=== PATIENT | male | born 1950 | race Caucasian/White ===

== ENCOUNTER 2018-01-25 06:38 | Inpatient (IN) ==
[2018-01-24 08:24] LABS: Basophils # 0.1 10*3/uL (0.0-0.2); Eosinophils # 0.2 10*3/uL (0.0-0.87); Eosinophils % 2.4 % (0.00-10.9); Hematocrit 44.5 VOL% (42.0-52.0); Hemoglobin 14.4 GM/DL (14.0-18.0); Immature Granulocytes % 0.7 %; Immature Granulocytes Absolute 0.05 #; Lymphocytes # 2.3 10*3/uL (1.4-4.0); Lymphocytes % 32.2 % (21.2-54.2); Mean Corpuscular HGB Conc 32.4 GM/DL (32-36); Mean Corpuscular Hemoglobin 31 PG (27-34); Mean Corpuscular Volume 95.5 FL (87-102); Mean Platelet Volume 10.2 FL (9.6-12.0); Monocytes # 0.6 10*3/uL (0.11-0.8); Monocytes % 7.7 % (1.7-12.7); Neutrophils # 4.1 10*3/uL (1.4-7.4); Platelet Count 212 T/CUMM (130-400); Red Blood Count 4.66 MC/CUMM (3.8-5.5); Red Cell Distribution Width 14.6 % (9.3-17.3); White Blood Count 7.2 T/CUMM (4-12)
[2018-01-24 08:43] LABS: Albumin 4.2 G/DL (3.4-5.0); Bilirubin,Total 0.4 MG/DL (0.2-1.0); Osmolality,Calculated 280.7 MOS/KG (273-304); Potassium 4.2 MMOL/L (3.5-5.1); Total Protein 7.7 G/DL (6.4-8.3)
[~2018-01-25 06:38] MED LIST: HEPARIN/NACL 0.9% 2 UNITS/ML 500 ML IV ONE; LACTATED RINGERS 1,000 ML IV SCH; LIDOCAINE 1% 20 ML VIAL ONE; LIDOCAINE 2% TOP JELLY 20 ML VIAL INTRAURETH ONE; NITROGLYCERIN DRIP 50 MG/250 ML BOTTLE IV ONE; PANTOPRAZOLE 40 MG TABLET PO ONE; PHENYLEPHRINE DRIP 20 MG/250 ML PREMIX IV ONE; THROMBIN TOPICAL (RECOMBINANT) 5,000 UNIT VIAL TOP ONE; TISSUE ADHESIVE 1 EACH APPLICATOR TOP ONE; VANCOMYCIN 500 MG VIAL ONE; ceFAZolin 1,000 MG VIAL ONE
[2018-01-25] MEDS ORDERED: DIAZEPAM 5 MG TABLET PO ONE (07:01)
[2018-01-25] MEDS ORDERED: DIAZEPAM 5 MG TABLET ONE (07:01)
[2018-01-25] MEDS ORDERED: PANTOPRAZOLE 40 MG TABLET PO ONE (07:01)
[2018-01-25] MEDS ORDERED: MIDAZOLAM 2 MG/2 ML VIAL ONE (07:10)
[2018-01-25] MEDS ORDERED: HEPARIN/NACL 0.9% 2 UNITS/ML 3,000 ML IV ONE (07:11)
[2018-01-25] MEDS ORDERED: ceFAZolin 1,000 MG in SYRINGE 1 EACH IV ONE (09:32)
[2018-01-25] MEDS ORDERED: FUROSEMIDE 20 MG TABLET PO PRN (10:19)
[2018-01-25] MEDS ORDERED: DEXTROSE 50% 25 GM/50 ML VIAL IV PRN (10:21)
[2018-01-25] MEDS ORDERED: GLUCAGON 1 MG VIAL IM PRN (10:21)
[2018-01-25] MEDS ORDERED: NEOSTIGMINE 10 MG/10 ML VIAL ONE (10:40)
[2018-01-25] MEDS ORDERED: GLYCOPYRROLATE 0.4 MG/2 ML VIAL ONE (10:40)
[2018-01-25] MEDS ORDERED: ETOMIDATE 40 MG/20 ML VIAL IV ONE (10:40)
[2018-01-25] MEDS ORDERED: SODIUM CHLORIDE 0.9% 1,000 ML IV ONE (10:40)
[2018-01-25] MEDS ORDERED: ROCURONIUM 100 MG/10 ML VIAL IV ONE (10:40)
[2018-01-25] MEDS ORDERED: HEPARIN 10,000 UNIT/10 ML VIAL ONE (10:40)
[2018-01-25] MEDS ORDERED: DESFLURANE 1 UNIT/15 MINUTE INH ONE (10:40)
[2018-01-25] MEDS ORDERED: fentaNYL 100 MCG/2 ML VIAL ONE (10:40)
[2018-01-25] MEDS: LACTATED RINGERS 1,000 ML IV SCH ×3 (11:45→22:16)
[2018-01-25] MEDS: INSULIN REGULAR 100 UNIT/ML SUBCUT SCH ×3 (12:10→20:53)
[2018-01-25 12:27] LABS: Hematocrit 39.6 VOL% (42.0-52.0); Hemoglobin 12.8 GM/DL (14.0-18.0)
[2018-01-25] MEDS: oxyCODONE/ACETAMINOPHEN 5-325 MG TABLET PO PRN ×3 (12:36→22:16)
[2018-01-25 12:43] LABS: Calcium 8.2 MG/DL (8.5-10.1); Osmolality,Calculated 285.3 MOS/KG (273-304); Potassium 4.5 MMOL/L (3.5-5.1)
[2018-01-25] MEDS: HYDROmorphone 2 MG/1 ML VIAL IV PRN ×2 (14:23→23:45)
[2018-01-25] MEDS ORDERED: amLODIPine 5 MG TABLET PO ONE (21:00)
[2018-01-25] MEDS ORDERED: cloNIDine 0.1 MG TABLET PO SCH ×2 (21:00)
[2018-01-26] MEDS: oxyCODONE/ACETAMINOPHEN 5-325 MG TABLET PO PRN (04:22)
[2018-01-26 05:33] LABS: Hematocrit 35.2 VOL% (42.0-52.0); Hemoglobin 11.8 GM/DL (14.0-18.0)
[2018-01-26 06:01] LABS: Calcium 8.2 MG/DL (8.5-10.1); Osmolality,Calculated 284.3 MOS/KG (273-304); Potassium 3.8 MMOL/L (3.5-5.1)
[2018-01-26] MEDS: LACTATED RINGERS 1,000 ML IV SCH (07:26)
[2018-01-26 08:01] VITALS: BP 128/72
[2018-01-26] MEDS: INSULIN REGULAR 100 UNIT/ML SUBCUT SCH (08:03)
[2018-01-26] MEDS ORDERED: metFORMIN 500 MG TABLET PO SCH (09:00)
[2018-01-26] MEDS ORDERED: OMEGA 3 ACID ETHYL ESTERS 1 GM CAPSULE PO SCH (09:00)
[2018-01-26] MEDS ORDERED: hydroCHLOROthiazide 25 MG TABLET PO SCH (09:00)
[2018-01-26] MEDS ORDERED: CLOPIDOGREL 75 MG TABLET PO SCH (09:00)
[2018-01-26] MEDS ORDERED: amLODIPine 5 MG TABLET PO SCH (09:00)
[2018-01-26] MEDS ORDERED: LOSARTAN 50 MG TABLET PO SCH (09:00)
[2018-01-26] MEDS ORDERED: ESCITALOPRAM 10 MG TABLET PO SCH (09:00)
[2018-01-26] MEDS ORDERED: amLODIPine 10 MG TABLET PO SCH (09:00)
[2018-01-26] MEDS ORDERED: AMIODARONE 200 MG TABLET PO SCH (09:00)
[2018-01-26] MEDS ORDERED: CHOLECALCIFEROL 1,000 UNIT TABLET PO SCH (09:00)
[2018-01-26] MEDS ORDERED: GLUCOSAMINE 500 MG TABLET PO SCH (09:00)
[2018-01-26] MEDS ORDERED: PANTOPRAZOLE 40 MG TABLET PO SCH (09:00)
[2018-01-26] MEDS ORDERED: ASPIRIN EC 81 MG TABLET PO SCH (09:00)
[2018-01-26] MEDS ORDERED: ROSUVASTATIN 20 MG TABLET PO SCH (09:00)
== END 2018-01-26 11:50 | disposition home or self-care (01) | DRG 269 ==
LOC: N.SDSINP 06:38 → N.3E 11:41
PROVIDERS: ADMIT Surgery; ATTEND Surgery
PROC: IRERAAA (2018-01-25 08:05)

== ENCOUNTER 2020-09-30 09:25 | Inpatient (IN) ==
[2020-09-30] MEDS ORDERED: GLUCAGON 1 MG VIAL IM PRN ×2 (09:28)
[2020-09-30] MEDS ORDERED: DEXTROSE 50% 25 GM/50 ML VIAL IV PRN ×2 (09:28)
[2020-09-30] MEDS ORDERED: PANTOPRAZOLE 40 MG TABLET PO ONE (10:24)
[2020-09-30] MEDS ORDERED: DIAZEPAM 5 MG TABLET PO ONE (10:24)
[2020-09-30] MEDS ORDERED: CLORAZEPATE 7.5 MG TABLET PO PRN (11:34)
[2020-09-30 11:52] LABS: ABG Base Excess 0.8 MMOL/L (-2.5-2.5); ABG HCO3 25.1 MMOL/L (20-26); ABG PCO2 40.1 MM HG (35-48); ABG TCO2 22.2 MMOL/L (23-27)
[2020-09-30 11:53] LABS: Basophils # 0.1 10*3/uL (0.0-0.2); Basophils % 0.9 % (0.0-0.8); Eosinophils # 0.2 10*3/uL (0.0-0.87); Eosinophils % 3.4 % (0.00-10.9); Hematocrit 40.6 VOL% (42.0-52.0); Hemoglobin 13.1 GM/DL (14.0-18.0); Immature Granulocytes % 0.7 %; Immature Granulocytes Absolute 0.04 #; Lymphocytes # 1.2 10*3/uL (1.4-4.0); Lymphocytes % 20.9 % (21.2-54.2); Mean Corpuscular HGB Conc 32.3 GM/DL (32-36); Mean Corpuscular Volume 96.7 FL (87-102); Mean Platelet Volume 9.1 FL (9.6-12.0); Monocytes % 10.5 % (1.7-12.7); Neutrophils % 63.6 % (38.7-73.9); Platelet Count 187 T/CUMM (130-400); Red Cell Distribution Width 15.6 % (9.3-17.3); White Blood Count 5.5 T/CUMM (4-12)
[2020-09-30 12:16] LABS: Albumin 4.2 G/DL (3.4-5.0); Bilirubin,Total 0.4 MG/DL (0.2-1.0); Calcium 9.6 MG/DL (8.5-10.1); Osmolality,Calculated 278.7 MOS/KG (273-304); Potassium 3.8 MMOL/L (3.5-5.1); Total Protein 7.3 G/DL (6.4-8.2)
[2020-09-30] MEDS: SODIUM CHLORIDE 0.9% 1,000 ML IV SCH (13:17)
[2020-09-30] MEDS: CHLORHEXIDINE 0.12% ORAL RINSE 60 ML BOTTLE SWISH/SPIT SCH ×2 (13:19→21:52)
[2020-09-30] MEDS: INSULIN REGULAR 100 UNIT/ML SUBCUT SCH ×3 (13:28→21:53)
[2020-09-30] MEDS: CHLORHEXIDINE 4% SOLN 118 ML BOTTLE TOP SCH ×2 (15:35→21:54)
[2020-09-30] MEDS ORDERED: QUEtiapine 25 MG TABLET PO SCH (21:00)
[2020-10-01] MEDS ORDERED: VANCOMYCIN 500 MG VIAL ONE (04:23)
[2020-10-01] MEDS ORDERED: VANCOMYCIN 1,000 MG VIAL ONE (04:23)
[2020-10-01] MEDS ORDERED: PAPAVERINE 60 MG/2 ML VIAL ONE (04:24)
[2020-10-01] MEDS ORDERED: SODIUM CHLORIDE 0.9% 250 ML IV ONE ×2 (05:34→13:50)
[2020-10-01] MEDS ORDERED: VECURONIUM 10 MG VIAL IV ONE (05:34)
[2020-10-01] MEDS ORDERED: HEPARIN/NACL 0.9% 2 UNITS/ML 1,000 UNIT/500 ML BAG IV ONE (05:34)
[2020-10-01] MEDS ORDERED: MIDAZOLAM 10 MG/2 ML VIAL ONE ×4 (05:34)
[2020-10-01] MEDS ORDERED: LIDOCAINE 2% 5 ML VIAL ONE ×2 (05:34→11:43)
[2020-10-01] MEDS ORDERED: SODIUM CHLORIDE 0.9% 1,000 ML IV ONE ×2 (05:34→12:20)
[2020-10-01] MEDS ORDERED: LACTATED RINGERS 1,000 ML IV ONE (05:34)
[2020-10-01] MEDS ORDERED: CALCIUM CHLORIDE 1,000 MG/10 ML VIAL IV ONE (05:34)
[2020-10-01] MEDS ORDERED: PHENYLEPHRINE DRIP 20 MG/250 ML PREMIX IV ONE ×3 (05:34→11:45)
[2020-10-01] MEDS ORDERED: SUFentanil 250 MCG/5 ML AMP ONE ×2 (05:34→08:12)
[2020-10-01] MEDS ORDERED: AMINOCAPROIC ACID 5,000 MG/20 ML VIAL ONE (05:34)
[2020-10-01] MEDS ORDERED: MINERAL OIL/PETROLATUM OPH OINT 3.5 GM TUBE ONE (05:37)
[2020-10-01] MEDS ORDERED: PANTOPRAZOLE 40 MG TABLET PO ONE (06:00)
[2020-10-01] MEDS ORDERED: DIAZEPAM 5 MG TABLET PO ONE (06:00)
[2020-10-01] MEDS ORDERED: ePHEDrine 50 MG/ML VIAL ONE (07:14)
[2020-10-01 07:45] LABS: ABG Base Excess 2.5 MMOL/L (-2.5-2.5); ABG HCO3 26.7 MMOL/L (20-26); ABG PCO2 39.1 MM HG (35-48); ABG PH 7.442 (7.35-7.45); ABG TCO2 23.4 MMOL/L (23-27); Glucose Heart Surgery 141 MG/DL (74-106); Hemoglobin Heart Surgery 12.4 G/DL (14.0-18.0); Ionized Calcium Arterial 1.15 MMOL/L (1.21-1.46); PCO2 Patient Temp Arterial 39.1 MMHG; PH Patient Temp Arterial 7.442; Patient Temperature 37 CELCIUS; Potassium Heart/CVR 3.6 MMOL/L (3.5-5.1); Sodium Heart/CVR 143 MMOL/L (135-145)
[2020-10-01] MEDS ORDERED: NITROPRUSSIDE 50 MG/2 ML VIAL ONE (07:56)
[2020-10-01] MEDS ORDERED: POTASSIUM CHLORIDE RIDER 100 ML IV ONE (07:56)
[2020-10-01] MEDS ORDERED: SODIUM BICARBONATE 50 MEQ/50 ML VIAL IV ONE ×2 (07:56→11:44)
[2020-10-01] MEDS ORDERED: CALCIUM CHLORIDE 1,000 MG/10 ML SYRINGE IV ONE (07:57)
[2020-10-01] MEDS ORDERED: PHENYLEPHRINE DRIP 40 MG/250 ML PREMIX IV ONE (07:57)
[2020-10-01 08:49] LABS: Bilirubin,Urine Negative (Negative); Blood, Urine Negative (Negative); Glucose,Urine (UA) Negative (Negative); Hyaline Casts,Urine 3 /LPF (0-3); Ketones,Urine Negative (Negative); Mucus,Urine Occasional /LPF (Occasional); Nitrite,Urine Negative (Negative); Protein,Urine Negative; Squamous Epithelial Cell,Urine Occasional /HPF (0-10); Urine Appearance CLEAR (Clear); Urine Color Yellow (Yellow); Urine Specific Gravity 1.018 (1.001-1.035); Urine Urobilinogen < 2.0 EU/DL (0.2-1.0); WBC,Urine <1 /HPF (0-6)
[2020-10-01] MEDS: CHLORHEXIDINE 4% SOLN 118 ML BOTTLE TOP SCH (08:55)
[2020-10-01] MEDS: CEFUROXIME INJ 1,500 MG in SODIUM CHLORIDE 0.9% 100 ML IV ONE ×2 (08:55→11:26)
[2020-10-01] MEDS: CHLORHEXIDINE 0.12% ORAL RINSE 60 ML BOTTLE SWISH/SPIT SCH ×2 (08:55→20:53)
[2020-10-01] MEDS: INSULIN REGULAR 100 UNIT/ML SUBCUT SCH ×2 (08:55→11:37)
[2020-10-01] MEDS ORDERED: SEVOFLURANE 1 UNIT/15 MINUTE INH ONE ×5 (09:29→11:46)
[2020-10-01] MEDS ORDERED: HEPARIN 10,000 UNIT/10 ML VIAL ONE ×3 (09:29→11:45)
[2020-10-01] MEDS: SODIUM CHLORIDE 0.9% 1,000 ML IV SCH (10:20)
[2020-10-01 10:41] LABS: Hematocrit Heart Surgery 39.4 PERCENT (42-52); Hemoglobin Heart Surgery 12.8 G/DL (14.0-18.0); PCO2 Patient Temp Venous 66.2 MM HG; PH Patient Temp Venous 7.182; VBG Base Excess -5.3 MEQ/L (0-4); VBG Oxygen Saturation 96.8 %; VBG PCO2 66.2 MMHG (41-51); VBG PH 7.182; VBG Total CO2 22.6 MMOL/L
[2020-10-01 10:54] LABS: Hematocrit Heart Surgery 26.5 PERCENT (42-52); Hemoglobin Heart Surgery 8.5 G/DL (14.0-18.0); PCO2 Patient Temp Venous 46.5 MM HG; PH Patient Temp Venous 7.428; PO2 Patient Temp Venous 42.3 MM HG; Potassium Heart/CVR 4.3 MMOL/L (3.5-5.1); VBG Base Excess 5.7 MEQ/L (0-4); VBG HCO3 29.2 MEQ/L (24-28); VBG Oxygen Saturation 75.8 %; VBG PCO2 46.5 MMHG (41-51); VBG PH 7.428; VBG PO2 42.3 MMHG (17-40); VBG Total CO2 28.6 MMOL/L
[2020-10-01 11:34] LABS: ABG Base Excess 1.2 MMOL/L (-2.5-2.5); ABG HCO3 25.5 MMOL/L (20-26); ABG Oxygen Saturation 96.9 % (95-100); ABG PCO2 41.9 MM HG (35-48); ABG PH 7.402 (7.35-7.45); ABG PO2 88.3 MM HG (80-95); ABG TCO2 23.9 MMOL/L (23-27)
[2020-10-01] MEDS ORDERED: ALBUMIN 25% 25 GM/100 ML VIAL IV ONE (11:43)
[2020-10-01] MEDS ORDERED: MAGNESIUM SULFATE 5 GM/10 ML VIAL IV ONE (11:43)
[2020-10-01] MEDS ORDERED: PROTAMINE SULFATE 250 MG/25 ML VIAL IV ONE (11:44)
[2020-10-01] MEDS ORDERED: PROTAMINE SULFATE 50 MG/5 ML VIAL IV ONE (11:44)
[2020-10-01] MEDS ORDERED: FUROSEMIDE 20 MG/2 ML VIAL ONE (11:44)
[2020-10-01] MEDS ORDERED: DEXTROSE 5% KCL 20 MEQ 20 MEQ/1,000 ML BAG IV ONE (11:44)
[2020-10-01] MEDS ORDERED: methylPREDNISolone SOD SUC 1,000 MG/8 ML VIAL ONE (11:44)
[2020-10-01] MEDS ORDERED: MANNITOL 100 GM/500 ML BAG IV ONE (11:44)
[2020-10-01] MEDS: PHENYLEPHRINE DRIP 40 MG/250 ML PREMIX IV PRN ×2 (12:20→21:00)
[2020-10-01] MEDS ORDERED: VECURONIUM 10 MG VIAL IV PRN ×2 (12:47)
[2020-10-01] MEDS ORDERED: MIDAZOLAM 2 MG/2 ML VIAL IV PRN (12:47)
[2020-10-01] MEDS ORDERED: CHLORHEXIDINE 4% SOLN 118 ML BOTTLE TOP PRN (12:47)
[2020-10-01] MEDS ORDERED: MORPHINE 10 MG/1 ML VIAL IV PRN (12:47)
[2020-10-01] MEDS ORDERED: MAGNESIUM SULF RIDER 4 GM/100 ML PREMIX IV PRN (12:47)
[2020-10-01] MEDS ORDERED: INSULIN REGULAR 100 UNIT/ML IV PRN (12:47)
[2020-10-01] MEDS ORDERED: ONDANSETRON 4 MG/2 ML VIAL IV PRN (12:47)
[2020-10-01] MEDS ORDERED: SODIUM CHLORIDE 0.45% 1,000 ML IV SCH ×2 (12:47)
[2020-10-01] MEDS ORDERED: DEXTROSE 50% 25 GM/50 ML VIAL IV PRN ×2 (12:47)
[2020-10-01] MEDS ORDERED: INSULIN REGULAR DRIP 100 ML IV SCH (12:47)
[2020-10-01] MEDS ORDERED: ACETAMINOPHEN 650 MG SUPP RECTAL PRN (12:47)
[2020-10-01] MEDS ORDERED: MAGNESIUM SULF RIDER 2 GM/50 ML PREMIX IV PRN (12:47)
[2020-10-01] MEDS ORDERED: MIDAZOLAM 10 MG/2 ML VIAL IV PRN (12:47)
[2020-10-01] MEDS ORDERED: INSULIN REGULAR 100 UNIT/ML IV ONE (12:47)
[2020-10-01] MEDS ORDERED: CALCIUM CHLORIDE 1,000 MG/10 ML SYRINGE IV PRN (12:47)
[2020-10-01] MEDS ORDERED: NITROPRUSSIDE 100 MG in DEXTROSE 5% 250 ML IV PRN (12:47)
[2020-10-01 12:52] LABS: ABG Base Excess 0.4 MMOL/L (-2.5-2.5); ABG HCO3 24.8 MMOL/L (20-26); ABG Oxygen Saturation 99.6 % (95-100); ABG PCO2 47.5 MM HG (35-48); ABG PH 7.352 (7.35-7.45); ABG TCO2 24.3 MMOL/L (23-27); Glucose Heart Surgery 259 MG/DL (74-106); Hematocrit Heart Surgery 29.1 PERCENT (42-52); Hemoglobin Heart Surgery 9.4 G/DL (14.0-18.0); Potassium Heart/CVR 3.5 MMOL/L (3.5-5.1)
[2020-10-01 12:55] LABS: Basophils % 0.5 % (0.0-0.8); Eosinophils # 0.1 10*3/uL (0.0-0.87); Eosinophils % 1.8 % (0.00-10.9); Hematocrit 27.8 VOL% (42.0-52.0); Immature Granulocytes % 0.4 %; Immature Granulocytes Absolute 0.02 #; Lymphocytes % 18.7 % (21.2-54.2); Mean Corpuscular HGB Conc 32.7 GM/DL (32-36); Mean Corpuscular Volume 95.9 FL (87-102); Mean Platelet Volume 9.3 FL (9.6-12.0); Neutrophils % 69.6 % (38.7-73.9); Platelet Count 137 T/CUMM (130-400); Red Cell Distribution Width 15.6 % (9.3-17.3); White Blood Count 5.6 T/CUMM (4-12)
[2020-10-01 12:58] LABS: Hemoglobin 9.1 GM/DL (14.0-18.0)
[2020-10-01] MEDS: ALBUMIN 5% 12.5 GM/250 ML VIAL IV PRN ×4 (13:00→20:20)
[2020-10-01 13:18] LABS: CKMB % 6.3 %
[2020-10-01 13:19] LABS: INR 1.3; PT Patient Result 14.1 SECS (9.8-11.9)
[2020-10-01 13:26] LABS: Albumin 3.2 G/DL (3.4-5.0); Bilirubin,Total 0.7 MG/DL (0.2-1.0); Calcium 7.6 MG/DL (8.5-10.1); Osmolality,Calculated 292.1 MOS/KG (273-304); Potassium 3.5 MMOL/L (3.5-5.1); Total Protein 5.1 G/DL (6.4-8.2)
[2020-10-01 13:27] LABS: Troponin I 4.32 NG/ML (0.00-0.045)
[2020-10-01] MEDS: POTASSIUM CHLORIDE RIDER 20 MEQ in PREMIX 1 EACH IV PRN ×2 (13:30→18:17)
[2020-10-01 14:34] LABS: ABG Base Excess -1.2 MMOL/L (-2.5-2.5); ABG HCO3 24.7 MMOL/L (20-26); ABG PCO2 46.7 MM HG (35-48); ABG PH 7.341 (7.35-7.45); ABG PO2 107.1 MM HG (80-95); ABG TCO2 26.1 MMOL/L (23-27); Glucose Heart Surgery 216 MG/DL (74-106); Hemoglobin Heart Surgery 10.2 G/DL (14.0-18.0); Potassium Heart/CVR 3.7 MMOL/L (3.5-5.1)
[2020-10-01] MEDS: POTASSIUM CHLORIDE RIDER 10 MEQ in PREMIX 1 EACH IV PRN ×2 (14:47→20:35)
[2020-10-01] MEDS: LACTATED RINGERS 250 ML IV PRN ×2 (16:09→16:50)
[2020-10-01 17:37] LABS: ABG Base Excess 0.2 MMOL/L (-2.5-2.5); ABG HCO3 24.6 MMOL/L (20-26); ABG Oxygen Saturation 98.4 % (95-100); ABG PCO2 55.2 MM HG (35-48); ABG PH 7.304 (7.35-7.45); ABG TCO2 25.3 MMOL/L (23-27); Glucose Heart Surgery 180 MG/DL (74-106); Hematocrit Heart Surgery 29.9 PERCENT (42-52); Hemoglobin Heart Surgery 9.7 G/DL (14.0-18.0); Potassium Heart/CVR 3.8 MMOL/L (3.5-5.1)
[2020-10-01 18:35] LABS: ABG Base Excess 0.1 MMOL/L (-2.5-2.5); ABG HCO3 24.5 MMOL/L (20-26); ABG Oxygen Saturation 99.2 % (95-100); ABG PCO2 42.4 MM HG (35-48); ABG PH 7.383 (7.35-7.45); ABG TCO2 22.8 MMOL/L (23-27); Glucose Heart Surgery 166 MG/DL (74-106); Hematocrit Heart Surgery 32.4 PERCENT (42-52); Hemoglobin Heart Surgery 10.5 G/DL (14.0-18.0); Potassium Heart/CVR 3.9 MMOL/L (3.5-5.1)
[2020-10-01] MEDS ORDERED: HALOPERIDOL 5 MG/ML AMP IV ONE (19:45)
[2020-10-01] MEDS: CEFUROXIME INJ 1,500 MG in SODIUM CHLORIDE 0.9% 100 ML IV SCH (19:54)
[2020-10-01 20:09] LABS: ABG Base Excess 0.2 MMOL/L (-2.5-2.5); ABG HCO3 24.6 MMOL/L (20-26); ABG Oxygen Saturation 99.1 % (95-100); ABG PCO2 38.2 MM HG (35-48); ABG PH 7.416 (7.35-7.45); ABG TCO2 22.2 MMOL/L (23-27); Glucose Heart Surgery 141 MG/DL (74-106); Hematocrit Heart Surgery 31.6 PERCENT (42-52); Hemoglobin Heart Surgery 10.2 G/DL (14.0-18.0); Potassium Heart/CVR 3.8 MMOL/L (3.5-5.1)
[2020-10-01 20:50] LABS: CKMB % 4.3 %
[2020-10-01 20:51] LABS: Troponin I 4.22 NG/ML (0.00-0.045)
[2020-10-01 22:11] LABS: ABG Base Excess -0.7 MMOL/L (-2.5-2.5); ABG HCO3 23.9 MMOL/L (20-26); ABG Oxygen Saturation 99.1 % (95-100); ABG PH 7.367 (7.35-7.45); ABG TCO2 22.7 MMOL/L (23-27); Glucose Heart Surgery 137 MG/DL (74-106); Hematocrit Heart Surgery 29.5 PERCENT (42-52); Hemoglobin Heart Surgery 9.5 G/DL (14.0-18.0)
[2020-10-01] MEDS: MORPHINE 4 MG/1 ML VIAL IV PRN (22:14)
[2020-10-01 23:38] LABS: ABG Base Excess -2.2 MMOL/L (-2.5-2.5); ABG HCO3 22.6 MMOL/L (20-26); ABG Oxygen Saturation 98.3 % (95-100); ABG PCO2 47.8 MM HG (35-48); ABG PH 7.314 (7.35-7.45); ABG TCO2 22.3 MMOL/L (23-27); Glucose Heart Surgery 149 MG/DL (74-106); Hematocrit Heart Surgery 31.3 PERCENT (42-52); Hemoglobin Heart Surgery 10.1 G/DL (14.0-18.0); Potassium Heart/CVR 3.8 MMOL/L (3.5-5.1)
[2020-10-02 00:28] LABS: ABG Base Excess -1.9 MMOL/L (-2.5-2.5); ABG HCO3 22.7 MMOL/L (20-26); ABG Oxygen Saturation 95.3 % (95-100); ABG PCO2 45.4 MM HG (35-48); ABG PH 7.333 (7.35-7.45); ABG PO2 79.5 MM HG (80-95); ABG TCO2 21.9 MMOL/L (23-27); Glucose Heart Surgery 155 MG/DL (74-106); Hematocrit Heart Surgery 33.7 PERCENT (42-52); Hemoglobin Heart Surgery 10.9 G/DL (14.0-18.0); Potassium Heart/CVR 3.9 MMOL/L (3.5-5.1)
[2020-10-02] MEDS: MORPHINE 4 MG/1 ML VIAL IV PRN ×3 (00:34→05:15)
[2020-10-02 03:12] LABS: ABG Base Excess -0.6 MMOL/L (-2.5-2.5); ABG HCO3 23.9 MMOL/L (20-26); ABG Oxygen Saturation 97.4 % (95-100); ABG PCO2 46.9 MM HG (35-48); ABG PH 7.343 (7.35-7.45); ABG PO2 94.1 MM HG (80-95); ABG TCO2 23.2 MMOL/L (23-27); Glucose Heart Surgery 156 MG/DL (74-106); Hematocrit Heart Surgery 31.8 PERCENT (42-52); Hemoglobin Heart Surgery 10.3 G/DL (14.0-18.0)
[2020-10-02 03:16] LABS: Basophils % 0.1 % (0.0-0.8); Hematocrit 30.4 VOL% (42.0-52.0); Immature Granulocytes % 0.3 %; Immature Granulocytes Absolute 0.03 #; Lymphocytes # 0.4 10*3/uL (1.4-4.0); Lymphocytes % 4.3 % (21.2-54.2); Mean Corpuscular HGB Conc 32.9 GM/DL (32-36); Mean Corpuscular Volume 90.5 FL (87-102); Mean Platelet Volume 9.4 FL (9.6-12.0); Monocytes % 6.5 % (1.7-12.7); Neutrophils % 88.8 % (38.7-73.9); Platelet Count 118 T/CUMM (130-400); Red Blood Count 3.36 MC/CUMM (3.8-5.5); Red Cell Distribution Width 18.8 % (9.3-17.3); White Blood Count 8.9 T/CUMM (4-12)
[2020-10-02 03:32] LABS: CKMB % 2.2 %
[2020-10-02 03:34] LABS: Troponin I 4.17 NG/ML (0.00-0.045)
[2020-10-02 03:40] LABS: Bilirubin,Direct 0.2 MG/DL (0.0-0.20); Bilirubin,Total 0.6 MG/DL (0.2-1.0); Calcium 7.4 MG/DL (8.5-10.1); Osmolality,Calculated 289.8 MOS/KG (273-304); Potassium 4.1 MMOL/L (3.5-5.1); Total Protein 5.8 G/DL (6.4-8.2)
[2020-10-02 03:47] LABS: Hypochromasia Slight
[2020-10-02] MEDS: KETOROLAC 30 MG/1 ML VIAL IV SCH ×3 (06:39→19:30)
[2020-10-02] MEDS: ASPIRIN EC 81 MG TABLET PO SCH (08:20)
[2020-10-02] MEDS: ESCITALOPRAM 10 MG TABLET PO SCH (08:20)
[2020-10-02] MEDS: FOLIC ACID 1 MG TABLET PO SCH (08:20)
[2020-10-02] MEDS: INSULIN REGULAR 100 UNIT/ML SUBCUT SCH ×4 (08:20→21:38)
[2020-10-02] MEDS: CEFUROXIME INJ 1,500 MG in SODIUM CHLORIDE 0.9% 100 ML IV SCH ×2 (08:20→21:38)
[2020-10-02] MEDS: CHLORHEXIDINE 0.12% ORAL RINSE 60 ML BOTTLE SWISH/SPIT SCH ×3 (08:20→21:39)
[2020-10-02] MEDS: PANTOPRAZOLE 40 MG TABLET PO SCH (08:21)
[2020-10-02] MEDS ORDERED: MAGNESIUM SULF RIDER 4 GM/100 ML PREMIX IV PRN (09:15)
[2020-10-02] MEDS ORDERED: SODIUM CHLOR 0.45% KCL 20 MEQ 20 MEQ/1,000 ML BAG IV SCH (09:15)
[2020-10-02] MEDS ORDERED: amLODIPine 5 MG TABLET PO SCH (09:15)
[2020-10-02] MEDS ORDERED: ONDANSETRON 4 MG/2 ML VIAL IV PRN (09:15)
[2020-10-02] MEDS ORDERED: GLUCAGON 1 MG VIAL IM PRN ×2 (09:15)
[2020-10-02] MEDS ORDERED: ALUMINUM/MAGNES/SIMETH MAX STR 30 ML UDCUP PO PRN (09:15)
[2020-10-02] MEDS ORDERED: MAGNESIUM HYDROXIDE SUSP 30 ML UDCUP PO PRN (09:15)
[2020-10-02] MEDS ORDERED: MAGNESIUM SULF RIDER 2 GM/50 ML PREMIX IV PRN (09:15)
[2020-10-02] MEDS ORDERED: DEXTROSE 50% 25 GM/50 ML VIAL IV PRN ×2 (09:15)
[2020-10-02] MEDS ORDERED: ZALEPLON 5 MG CAPSULE PO PRN (09:15)
[2020-10-02] MEDS: DOCUSATE SODIUM 100 MG CAPSULE PO SCH (09:53)
[2020-10-02] MEDS: FERROUS SULFATE 325 MG TABLET PO SCH (09:53)
[2020-10-02] MEDS: oxyCODONE/ACETAMINOPHEN 5-325 MG TABLET PO PRN ×2 (14:35→16:03)
[2020-10-02 15:08] LABS: CKMB % 1.1 %
[2020-10-02 15:09] LABS: Troponin I 3.94 NG/ML (0.00-0.045)
[2020-10-02] MEDS ORDERED: DIAZEPAM 5 MG TABLET PO PRN (17:43)
[2020-10-02] MEDS ORDERED: HALOPERIDOL 5 MG/ML AMP IM ONE (18:46)
[2020-10-02] MEDS ORDERED: NITROGLYCERIN DRIP 50 MG/250 ML BOTTLE IV ONE (18:51)
[2020-10-02] MEDS ORDERED: NITROGLYCERIN DRIP 50 MG/250 ML BOTTLE IV PRN (18:53)
[2020-10-02 19:03] LABS: ABG Base Excess -1.3 MMOL/L (-2.5-2.5); ABG HCO3 23.2 MMOL/L (20-26); ABG Oxygen Saturation 92.4 % (95-100); ABG PCO2 38.9 MM HG (35-48); ABG PH 7.388 (7.35-7.45); ABG PO2 65.5 MM HG (80-95); ABG TCO2 21.4 MMOL/L (23-27); Allen Test Positive; Pt O2 Delivery Device Venturi Mask
[2020-10-02] MEDS ORDERED: FUROSEMIDE 40 MG/4 ML VIAL ONE (19:11)
[2020-10-02] MEDS ORDERED: FUROSEMIDE 40 MG/4 ML VIAL IV ONE (19:12)
[2020-10-02] MEDS: ALBUTEROL/IPRATROPIUM 3 ML NEB RESP TX SCH (19:33)
[2020-10-02 21:00] LABS: Calcium 8.1 MG/DL (8.5-10.1); Osmolality,Calculated 287.4 MOS/KG (273-304); Potassium 4.1 MMOL/L (3.5-5.1)
[2020-10-02] MEDS: QUEtiapine 25 MG TABLET PO SCH (21:39)
[2020-10-03] MEDS: KETOROLAC 30 MG/1 ML VIAL IV SCH ×4 (00:29→18:28)
[2020-10-03] MEDS: oxyCODONE/ACETAMINOPHEN 5-325 MG TABLET PO PRN ×2 (00:31→20:05)
[2020-10-03] MEDS ORDERED: FUROSEMIDE 40 MG/4 ML VIAL IV ONE ×2 (01:00→06:00)
[2020-10-03] MEDS: ALBUTEROL/IPRATROPIUM 3 ML NEB RESP TX SCH ×5 (01:00→19:58)
[2020-10-03] MEDS ORDERED: HALOPERIDOL 5 MG/ML AMP IV PRN ×3 (01:50→21:00)
[2020-10-03] MEDS: LORazepam 2 MG/1 ML VIAL IV PRN ×5 (01:51→21:03)
[2020-10-03] MEDS ORDERED: EPINEPHrine 1 MG/ML VIAL ONE (03:14)
[2020-10-03] MEDS ORDERED: DIGOXIN 0.5 MG/2 ML AMP IV ONE (04:10)
[2020-10-03 04:45] LABS: Basophils % 0.2 % (0.0-0.8); Eosinophils # 0.1 10*3/uL (0.0-0.87); Eosinophils % 1.1 % (0.00-10.9); Hematocrit 30.7 VOL% (42.0-52.0); Hemoglobin 9.5 GM/DL (14.0-18.0); Immature Granulocytes % 2.6 %; Immature Granulocytes Absolute 0.33 #; Lymphocytes # 0.5 10*3/uL (1.4-4.0); Lymphocytes % 4.2 % (21.2-54.2); Mean Corpuscular HGB Conc 30.9 GM/DL (32-36); Mean Corpuscular Volume 97.8 FL (87-102); Mean Platelet Volume 10.7 FL (9.6-12.0); Neutrophils % 78.9 % (38.7-73.9); Red Blood Count 3.14 MC/CUMM (3.8-5.5); Red Cell Distribution Width 15.9 % (9.3-17.3)
[2020-10-03 04:46] LABS: Platelet Count 317 T/CUMM (130-400); White Blood Count 12.5 T/CUMM (4-12)
[2020-10-03 05:09] LABS: Hypochromasia 1+; Lymphocytes 2 % (20-55); Myelocytes 1 %; Segmented Neutrophils 87 % (50-85); Total Cells Counted 100
[2020-10-03 05:10] LABS: ABG Base Excess 3.9 MMOL/L (-2.5-2.5); ABG HCO3 27.9 MMOL/L (20-26); ABG Oxygen Saturation 97.5 % (95-100); ABG PCO2 39.9 MM HG (35-48); ABG PH 7.463 (7.35-7.45); ABG TCO2 29.2 MMOL/L (23-27); Allen Test Positive
[2020-10-03 05:10] LABS: Microcytosis 1+
[2020-10-03 05:11] LABS: Platelet Estimate Normal
[2020-10-03 05:12] LABS: Albumin 4.1 G/DL (3.4-5.0); Bilirubin,Direct 0.19 MG/DL (0.0-0.20); Bilirubin,Indirect 0.4 MG/DL (0.0-1.0); Bilirubin,Total 0.6 MG/DL (0.2-1.0); CKMB % 0.5 %; Osmolality,Calculated 288.1 MOS/KG (273-304); Potassium 3.6 MMOL/L (3.5-5.1); Total Protein 6.5 G/DL (6.4-8.2)
[2020-10-03 05:14] LABS: Troponin I 4.19 NG/ML (0.00-0.045)
[2020-10-03] MEDS ORDERED: DILTIAZEM 30 MG TABLET PO SCH (09:00)
[2020-10-03] MEDS: DOCUSATE SODIUM 100 MG CAPSULE PO SCH (09:09)
[2020-10-03] MEDS: PANTOPRAZOLE 40 MG TABLET PO SCH (09:09)
[2020-10-03] MEDS: ESCITALOPRAM 10 MG TABLET PO SCH (09:09)
[2020-10-03] MEDS: POTASSIUM CHLORIDE 20 MEQ TABLET PO PRN ×2 (09:09→11:30)
[2020-10-03] MEDS: AMIODARONE 200 MG TABLET PO SCH (09:09)
[2020-10-03] MEDS: ASPIRIN EC 81 MG TABLET PO SCH (09:09)
[2020-10-03] MEDS: FOLIC ACID 1 MG TABLET PO SCH (09:09)
[2020-10-03] MEDS: CHLORHEXIDINE 0.12% ORAL RINSE 60 ML BOTTLE SWISH/SPIT SCH ×2 (09:10→20:06)
[2020-10-03] MEDS: FERROUS SULFATE 325 MG TABLET PO SCH (09:10)
[2020-10-03] MEDS: INSULIN REGULAR 100 UNIT/ML SUBCUT SCH ×4 (10:30→20:04)
[2020-10-03] MEDS ORDERED: HALOPERIDOL 5 MG/ML AMP IV ONE ×2 (15:33→17:15)
[2020-10-03] MEDS ORDERED: HALOPERIDOL 5 MG/ML AMP IM PRN (18:52)
[2020-10-03 18:53] LABS: CKMB % 0.3 %
[2020-10-03 19:08] LABS: Troponin I 4.24 NG/ML (0.00-0.045)
[2020-10-03] MEDS: DILTIAZEM 30 MG TABLET PO SCH (20:04)
[2020-10-03] MEDS: QUEtiapine 25 MG TABLET PO SCH (20:04)
[2020-10-03] MEDS: ACETAMINOPHEN 325 MG TABLET PO PRN (20:05)
[2020-10-04] MEDS: KETOROLAC 30 MG/1 ML VIAL IV SCH ×5 (00:10→19:30)
[2020-10-04] MEDS: LORazepam 2 MG/1 ML VIAL IV PRN ×3 (01:53→20:50)
[2020-10-04 04:14] LABS: Basophils % 0.1 % (0.0-0.8); Hematocrit 28.2 VOL% (42.0-52.0); Hemoglobin 9.5 GM/DL (14.0-18.0); Immature Granulocytes % 0.6 %; Immature Granulocytes Absolute 0.07 #; Lymphocytes # 1.2 10*3/uL (1.4-4.0); Lymphocytes % 10.4 % (21.2-54.2); Mean Corpuscular HGB Conc 33.7 GM/DL (32-36); Mean Corpuscular Volume 90.7 FL (87-102); Mean Platelet Volume 10.4 FL (9.6-12.0); Monocytes % 8.5 % (1.7-12.7); Neutrophils % 80.4 % (38.7-73.9); Platelet Count 121 T/CUMM (130-400); Red Blood Count 3.11 MC/CUMM (3.8-5.5); Red Cell Distribution Width 18.2 % (9.3-17.3); White Blood Count 11.9 T/CUMM (4-12)
[2020-10-04] MEDS: ACETAMINOPHEN 325 MG TABLET PO PRN ×2 (04:17→08:42)
[2020-10-04 04:22] LABS: Allen Test Positive; Pt O2 Delivery Device Other
[2020-10-04 04:23] LABS: ABG Base Excess 3.4 MMOL/L (-2.5-2.5); ABG HCO3 27.4 MMOL/L (20-26); ABG Oxygen Saturation 95.5 % (95-100); ABG PCO2 39.7 MM HG (35-48); ABG PH 7.449 (7.35-7.45); ABG PO2 78.5 MM HG (80-95); ABG TCO2 25.1 MMOL/L (23-27)
[2020-10-04 04:54] LABS: Bilirubin,Direct 0.23 MG/DL (0.0-0.20); Bilirubin,Indirect 1.4 MG/DL (0.0-1.0); Bilirubin,Total 1.6 MG/DL (0.2-1.0); CKMB % 0.3 %; Calcium 8.4 MG/DL (8.5-10.1); Osmolality,Calculated 290.3 MOS/KG (273-304); Total Protein 6.6 G/DL (6.4-8.2)
[2020-10-04 04:57] LABS: Troponin I 3.3 NG/ML (0.00-0.045)
[2020-10-04] MEDS ORDERED: AMIODARONE INJ 150 MG in DEXTROSE 5% 100 ML IV ONE (05:35)
[2020-10-04] MEDS ORDERED: DILTIAZEM INJ 100 MG in SODIUM CHLORIDE 0.9% 100 ML IV ONE (05:38)
[2020-10-04] MEDS ORDERED: DILTIAZEM 25 MG/5 ML VIAL IV ONE (06:00)
[2020-10-04] MEDS ORDERED: AMIODARONE INJ 100 MG in DEXTROSE 5% 100 ML IV ONE ×2 (06:00→14:34)
[2020-10-04] MEDS ORDERED: DILTIAZEM INJ 100 MG in SODIUM CHLORIDE 0.9% 100 ML IV PRN (06:27)
[2020-10-04] MEDS: ALBUTEROL/IPRATROPIUM 3 ML NEB RESP TX SCH ×3 (06:54→19:56)
[2020-10-04] MEDS: ESCITALOPRAM 10 MG TABLET PO SCH (08:05)
[2020-10-04] MEDS: FERROUS SULFATE 325 MG TABLET PO SCH (08:05)
[2020-10-04] MEDS: ASPIRIN EC 81 MG TABLET PO SCH (08:05)
[2020-10-04] MEDS: AMIODARONE 200 MG TABLET PO SCH ×2 (08:05→21:40)
[2020-10-04] MEDS: DOCUSATE SODIUM 100 MG CAPSULE PO SCH (08:05)
[2020-10-04] MEDS: PANTOPRAZOLE 40 MG TABLET PO SCH (08:05)
[2020-10-04] MEDS: FOLIC ACID 1 MG TABLET PO SCH (08:06)
[2020-10-04] MEDS: INSULIN REGULAR 100 UNIT/ML SUBCUT SCH ×4 (08:27→20:00)
[2020-10-04] MEDS: CHLORHEXIDINE 0.12% ORAL RINSE 60 ML BOTTLE SWISH/SPIT SCH ×2 (08:28→21:13)
[2020-10-04] MEDS ORDERED: METOPROLOL TARTRATE 25 MG TABLET PO SCH (10:21)
[2020-10-04] MEDS: DILTIAZEM 30 MG TABLET PO SCH ×2 (14:55→20:23)
[2020-10-04] MEDS: oxyCODONE/ACETAMINOPHEN 5-325 MG TABLET PO PRN (20:21)
[2020-10-04] MEDS: APIXABAN 5 MG TABLET PO SCH (20:23)
[2020-10-04] MEDS: QUEtiapine 25 MG TABLET PO SCH (20:23)
[2020-10-04] MEDS ORDERED: PHENYLEPHRINE DRIP 40 MG/250 ML PREMIX IV ONE (21:46)
[2020-10-05] MEDS: KETOROLAC 30 MG/1 ML VIAL IV SCH ×4 (00:45→18:31)
[2020-10-05] MEDS: ALBUTEROL/IPRATROPIUM 3 ML NEB RESP TX SCH ×4 (03:06→20:57)
[2020-10-05 04:40] LABS: Basophils % 0.1 % (0.0-0.8); Hemoglobin 9.3 GM/DL (14.0-18.0); Immature Granulocytes % 0.5 %; Immature Granulocytes Absolute 0.06 #; Lymphocytes % 8.8 % (21.2-54.2); Mean Corpuscular HGB Conc 32.1 GM/DL (32-36); Mean Corpuscular Volume 94.2 FL (87-102); Mean Platelet Volume 10.2 FL (9.6-12.0); Monocytes % 6.7 % (1.7-12.7); Neutrophils % 83.9 % (38.7-73.9); Platelet Count 140 T/CUMM (130-400); Red Blood Count 3.08 MC/CUMM (3.8-5.5); Red Cell Distribution Width 17.9 % (9.3-17.3)
[2020-10-05 05:00] LABS: Calcium 8.7 MG/DL (8.5-10.1); Potassium 3.9 MMOL/L (3.5-5.1)
[2020-10-05] MEDS: INSULIN REGULAR 100 UNIT/ML SUBCUT SCH ×4 (07:30→20:15)
[2020-10-05] MEDS ORDERED: AMIODARONE 450 MG/9 ML VIAL IV ONE (08:04)
[2020-10-05] MEDS ORDERED: AMIODARONE INJ 150 MG in DEXTROSE 5% 100 ML IV ONE (08:08)
[2020-10-05] MEDS: FOLIC ACID 1 MG TABLET PO SCH (08:10)
[2020-10-05] MEDS: ASPIRIN EC 81 MG TABLET PO SCH (08:10)
[2020-10-05] MEDS: PANTOPRAZOLE 40 MG TABLET PO SCH (08:10)
[2020-10-05] MEDS: DILTIAZEM 30 MG TABLET PO SCH ×2 (08:11→20:12)
[2020-10-05] MEDS: APIXABAN 5 MG TABLET PO SCH ×2 (08:11→20:15)
[2020-10-05] MEDS: FERROUS SULFATE 325 MG TABLET PO SCH (08:11)
[2020-10-05] MEDS: ESCITALOPRAM 10 MG TABLET PO SCH (08:11)
[2020-10-05] MEDS: DOCUSATE SODIUM 100 MG CAPSULE PO SCH (08:11)
[2020-10-05] MEDS ORDERED: AMIODARONE INJ 450 MG in DEXTROSE 5% 241 ML IV SCH (08:30)
[2020-10-05] MEDS: oxyCODONE/ACETAMINOPHEN 5-325 MG TABLET PO PRN ×2 (10:37→14:45)
[2020-10-05] MEDS: CHLORHEXIDINE 0.12% ORAL RINSE 60 ML BOTTLE SWISH/SPIT SCH ×2 (10:39→20:15)
[2020-10-05] MEDS: PHENAZOPYRIDINE 95 MG TABLET PO SCH (16:58)
[2020-10-05] MEDS: AMIODARONE INJ 450 MG in DEXTROSE 5% 241 ML IV SCH (18:43)
[2020-10-05] MEDS: QUEtiapine 25 MG TABLET PO SCH (20:15)
[2020-10-06] MEDS: KETOROLAC 30 MG/1 ML VIAL IV SCH ×2 (00:21→05:56)
[2020-10-06] MEDS: ALBUTEROL/IPRATROPIUM 3 ML NEB RESP TX SCH ×4 (03:12→20:04)
[2020-10-06 04:28] LABS: Eosinophils % 0.3 % (0.00-10.9); Hematocrit 26.8 VOL% (42.0-52.0); Hemoglobin 8.6 GM/DL (14.0-18.0); Immature Granulocytes % 0.6 %; Immature Granulocytes Absolute 0.04 #; Lymphocytes # 0.7 10*3/uL (1.4-4.0); Lymphocytes % 10.7 % (21.2-54.2); Mean Corpuscular HGB Conc 32.1 GM/DL (32-36); Mean Platelet Volume 10.3 FL (9.6-12.0); Monocytes % 7.9 % (1.7-12.7); Neutrophils % 80.5 % (38.7-73.9); Platelet Count 131 T/CUMM (130-400); Red Blood Count 2.85 MC/CUMM (3.8-5.5); Red Cell Distribution Width 17.7 % (9.3-17.3); White Blood Count 6.8 T/CUMM (4-12)
[2020-10-06 04:50] LABS: Albumin 3.2 G/DL (3.4-5.0); Bilirubin,Direct 0.27 MG/DL (0.0-0.20); Bilirubin,Indirect 0.8 MG/DL (0.0-1.0); Bilirubin,Total 1.1 MG/DL (0.2-1.0); CKMB % 0.6 %; Calcium 8.4 MG/DL (8.5-10.1)
[2020-10-06 04:51] LABS: Troponin I 1.16 NG/ML (0.00-0.045)
[2020-10-06] MEDS: AMIODARONE INJ 450 MG in DEXTROSE 5% 241 ML IV SCH (05:49)
[2020-10-06] MEDS: DILTIAZEM 30 MG TABLET PO SCH (08:14)
[2020-10-06] MEDS: PHENAZOPYRIDINE 95 MG TABLET PO SCH (08:14)
[2020-10-06] MEDS: ASPIRIN EC 81 MG TABLET PO SCH (08:14)
[2020-10-06] MEDS: PANTOPRAZOLE 40 MG TABLET PO SCH (08:15)
[2020-10-06] MEDS: DOCUSATE SODIUM 100 MG CAPSULE PO SCH (08:15)
[2020-10-06] MEDS: ESCITALOPRAM 10 MG TABLET PO SCH (08:15)
[2020-10-06] MEDS: FOLIC ACID 1 MG TABLET PO SCH (08:15)
[2020-10-06] MEDS: APIXABAN 5 MG TABLET PO SCH ×2 (08:15→21:00)
[2020-10-06] MEDS: INSULIN REGULAR 100 UNIT/ML SUBCUT SCH (08:15)
[2020-10-06] MEDS: FERROUS SULFATE 325 MG TABLET PO SCH (08:15)
[2020-10-06] MEDS: CHLORHEXIDINE 0.12% ORAL RINSE 60 ML BOTTLE SWISH/SPIT SCH ×2 (08:16→21:04)
[2020-10-06] MEDS: lisinopriL 2.5 MG TABLET PO SCH (10:06)
[2020-10-06] MEDS: AMIODARONE 200 MG TABLET PO SCH ×3 (10:55→21:01)
[2020-10-06] MEDS ORDERED: ONDANSETRON 4 MG/2 ML VIAL IV PRN (11:06)
[2020-10-06] MEDS ORDERED: DEXTROSE 50% 25 GM/50 ML VIAL IV PRN ×2 (11:06)
[2020-10-06] MEDS ORDERED: GLUCAGON 1 MG VIAL IM PRN ×2 (11:06)
[2020-10-06] MEDS ORDERED: MAGNESIUM HYDROXIDE SUSP 30 ML UDCUP PO PRN (11:06)
[2020-10-06] MEDS ORDERED: MAGNESIUM SULF RIDER 4 GM/100 ML PREMIX IV PRN (11:06)
[2020-10-06] MEDS ORDERED: ALUMINUM/MAGNES/SIMETH MAX STR 30 ML UDCUP PO PRN (11:06)
[2020-10-06] MEDS ORDERED: MAGNESIUM SULF RIDER 2 GM/50 ML PREMIX IV PRN (11:06)
[2020-10-06] MEDS ORDERED: ACETAMINOPHEN 325 MG TABLET PO PRN (11:06)
[2020-10-06] MEDS ORDERED: KETOROLAC 30 MG/1 ML VIAL IV PRN (11:06)
[2020-10-06] MEDS ORDERED: SODIUM CHLOR 0.45% KCL 20 MEQ 20 MEQ/1,000 ML BAG IV SCH (11:30)
[2020-10-06] MEDS: metFORMIN 500 MG TABLET PO SCH (17:09)
[2020-10-06] MEDS ORDERED: cloNIDine 0.1 MG TABLET PO SCH (21:00)
[2020-10-06] MEDS: ROSUVASTATIN 20 MG TABLET PO SCH (21:00)
[2020-10-06] MEDS: ZALEPLON 5 MG CAPSULE PO PRN (21:00)
[2020-10-06] MEDS: QUEtiapine 25 MG TABLET PO SCH (21:01)
[2020-10-06] MEDS: oxyCODONE/ACETAMINOPHEN 5-325 MG TABLET PO PRN (21:01)
[2020-10-07] MEDS: ALBUTEROL/IPRATROPIUM 3 ML NEB RESP TX SCH ×4 (00:18→19:57)
[2020-10-07] MEDS ORDERED: AMIODARONE INJ 100 MG in DEXTROSE 5% 100 ML IV ONE (00:53)
[2020-10-07] MEDS ORDERED: AMIODARONE 150 MG/3 ML VIAL ONE (00:59)
[2020-10-07] MEDS: ZALEPLON 5 MG CAPSULE PO PRN ×2 (01:18→21:39)
[2020-10-07 04:38] LABS: Basophils % 0.1 % (0.0-0.8); Eosinophils # 0.1 10*3/uL (0.0-0.87); Eosinophils % 1.1 % (0.00-10.9); Hemoglobin 9.4 GM/DL (14.0-18.0); Lymphocytes # 1.3 10*3/uL (1.4-4.0); Lymphocytes % 13.1 % (21.2-54.2); Mean Corpuscular HGB Conc 32.4 GM/DL (32-36); Mean Corpuscular Volume 92.7 FL (87-102); Mean Platelet Volume 9.9 FL (9.6-12.0); Monocytes % 7.3 % (1.7-12.7); NRBC # 0.02 10*3/uL; Neutrophils % 77.4 % (38.7-73.9); Platelet Count 169 T/CUMM (130-400); Red Blood Count 3.13 MC/CUMM (3.8-5.5); Red Cell Distribution Width 17.7 % (9.3-17.3); White Blood Count 10.2 T/CUMM (4-12)
[2020-10-07 05:01] LABS: Albumin 3.5 G/DL (3.4-5.0); Bilirubin,Direct 0.25 MG/DL (0.0-0.20); Bilirubin,Total 1.2 MG/DL (0.2-1.0); Calcium 8.2 MG/DL (8.5-10.1); Osmolality,Calculated 286.3 MOS/KG (273-304); Potassium 3.8 MMOL/L (3.5-5.1); Total Protein 6.4 G/DL (6.4-8.2)
[2020-10-07 05:03] LABS: Troponin I 0.71 NG/ML (0.00-0.045)
[2020-10-07] MEDS ORDERED: FUROSEMIDE 40 MG/4 ML VIAL IV ONE (06:00)
[2020-10-07] MEDS: POTASSIUM CHLORIDE 20 MEQ TABLET PO PRN ×2 (06:04→08:03)
[2020-10-07] MEDS: oxyCODONE/ACETAMINOPHEN 5-325 MG TABLET PO PRN ×2 (06:25→18:34)
[2020-10-07] MEDS: AMIODARONE 200 MG TABLET PO SCH ×2 (08:02→21:31)
[2020-10-07] MEDS: ASPIRIN EC 81 MG TABLET PO SCH (08:02)
[2020-10-07] MEDS: lisinopriL 2.5 MG TABLET PO SCH (08:02)
[2020-10-07] MEDS: ESCITALOPRAM 10 MG TABLET PO SCH (08:02)
[2020-10-07] MEDS: cloNIDine 0.1 MG TABLET PO SCH (08:02)
[2020-10-07] MEDS: DOCUSATE SODIUM 100 MG CAPSULE PO SCH (08:03)
[2020-10-07] MEDS: FOLIC ACID 1 MG TABLET PO SCH (08:03)
[2020-10-07] MEDS: PANTOPRAZOLE 40 MG TABLET PO SCH (08:03)
[2020-10-07] MEDS: APIXABAN 5 MG TABLET PO SCH ×2 (08:03→21:31)
[2020-10-07] MEDS: metFORMIN 500 MG TABLET PO SCH ×2 (08:03→16:31)
[2020-10-07] MEDS: FERROUS SULFATE 325 MG TABLET PO SCH (08:03)
[2020-10-07] MEDS ORDERED: DILTIAZEM 50 MG/10 ML VIAL IV ONE (08:24)
[2020-10-07] MEDS ORDERED: diphenhydrAMINE CAP 25 MG CAPSULE PO PRN (08:24)
[2020-10-07] MEDS: DILTIAZEM INJ 100 MG in SODIUM CHLORIDE 0.9% 100 ML IV SCH (08:59)
[2020-10-07] MEDS ORDERED: hydroCHLOROthiazide 25 MG TABLET PO SCH (09:00)
[2020-10-07] MEDS: CHLORHEXIDINE 0.12% ORAL RINSE 60 ML BOTTLE SWISH/SPIT SCH ×2 (09:03→21:39)
[2020-10-07] MEDS: ROSUVASTATIN 20 MG TABLET PO SCH (21:31)
[2020-10-07] MEDS: QUEtiapine 25 MG TABLET PO SCH (21:32)
[2020-10-08] MEDS: oxyCODONE/ACETAMINOPHEN 5-325 MG TABLET PO PRN ×2 (01:24→05:26)
[2020-10-08] MEDS: ALBUTEROL/IPRATROPIUM 3 ML NEB RESP TX SCH ×4 (01:34→19:43)
[2020-10-08 05:21] LABS: Basophils % 0.2 % (0.0-0.8); Eosinophils # 0.2 10*3/uL (0.0-0.87); Eosinophils % 1.5 % (0.00-10.9); Hematocrit 28.2 VOL% (42.0-52.0); Hemoglobin 9.2 GM/DL (14.0-18.0); Immature Granulocytes % 1.8 %; Immature Granulocytes Absolute 0.22 #; Lymphocytes % 8.4 % (21.2-54.2); Mean Corpuscular HGB Conc 32.6 GM/DL (32-36); Mean Corpuscular Volume 94.3 FL (87-102); Mean Platelet Volume 10.3 FL (9.6-12.0); Monocytes % 6.3 % (1.7-12.7); NRBC # 0.03 10*3/uL; Neutrophils % 81.8 % (38.7-73.9); Platelet Count 184 T/CUMM (130-400); Red Blood Count 2.99 MC/CUMM (3.8-5.5); White Blood Count 12.1 T/CUMM (4-12)
[2020-10-08 05:45] LABS: Alanine Aminotransferase 61 U/L (16-61); Albumin 3.2 G/DL (3.4-5.0); Alkaline Phosphatase 61 U/L (45-117); Aspartate Amino Transferase 45 U/L (0-37); Bilirubin,Indirect 1.1 MG/DL (0.0-1.0); Blood Urea Nitrogen 22 MG/DL (7-18); Calcium 8.5 MG/DL (8.5-10.1); Carbon Dioxide 26 MMOL/L (21-32); Estimated Glom Filtration Rate 88 ML/MIN; Glucose 122 MG/DL (74-106); Potassium 3.8 MMOL/L (3.5-5.1); Sodium 136 MMOL/L (136-145); Total Protein 6.3 G/DL (6.4-8.2)
[2020-10-08] MEDS ORDERED: POLYETHYLENE GLYCOL POWDER 17 GM PACK PO SCH (09:00)
[2020-10-08] MEDS: metFORMIN 500 MG TABLET PO SCH ×2 (09:19→16:02)
[2020-10-08] MEDS: ASPIRIN EC 81 MG TABLET PO SCH (09:20)
[2020-10-08] MEDS: ESCITALOPRAM 10 MG TABLET PO SCH (09:20)
[2020-10-08] MEDS: cloNIDine 0.1 MG TABLET PO SCH (09:21)
[2020-10-08] MEDS: FOLIC ACID 1 MG TABLET PO SCH (09:21)
[2020-10-08] MEDS: PANTOPRAZOLE 40 MG TABLET PO SCH (09:21)
[2020-10-08] MEDS: AMIODARONE 200 MG TABLET PO SCH ×2 (09:21→20:14)
[2020-10-08] MEDS: APIXABAN 5 MG TABLET PO SCH ×2 (09:21→20:14)
[2020-10-08] MEDS: DOCUSATE SODIUM 100 MG CAPSULE PO SCH (09:22)
[2020-10-08] MEDS: FERROUS SULFATE 325 MG TABLET PO SCH (09:22)
[2020-10-08] MEDS: DILTIAZEM INJ 100 MG in SODIUM CHLORIDE 0.9% 100 ML IV SCH (09:24)
[2020-10-08] MEDS: CHLORHEXIDINE 0.12% ORAL RINSE 60 ML BOTTLE SWISH/SPIT SCH ×2 (09:26→20:15)
[2020-10-08] MEDS: lisinopriL 2.5 MG TABLET PO SCH (09:26)
[2020-10-08] MEDS: SPIRONOLACTONE 25 MG TABLET PO SCH (09:26)
[2020-10-08] MEDS: ROSUVASTATIN 20 MG TABLET PO SCH (20:14)
[2020-10-08] MEDS: QUEtiapine 25 MG TABLET PO SCH (20:15)
[2020-10-09] MEDS: ZALEPLON 5 MG CAPSULE PO PRN (00:11)
[2020-10-09] MEDS: oxyCODONE/ACETAMINOPHEN 5-325 MG TABLET PO PRN (00:12)
[2020-10-09] MEDS: ALBUTEROL/IPRATROPIUM 3 ML NEB RESP TX SCH ×3 (01:00→13:15)
[2020-10-09 05:41] LABS: Basophils % 0.2 % (0.0-0.8); Eosinophils # 0.2 10*3/uL (0.0-0.87); Eosinophils % 1.2 % (0.00-10.9); Hematocrit 31.3 VOL% (42.0-52.0); Hemoglobin 9.8 GM/DL (14.0-18.0); Immature Granulocytes % 1.7 %; Immature Granulocytes Absolute 0.23 #; Lymphocytes # 2.1 10*3/uL (1.4-4.0); Lymphocytes % 16.1 % (21.2-54.2); Mean Corpuscular HGB Conc 31.3 GM/DL (32-36); Mean Corpuscular Volume 97.8 FL (87-102); Mean Platelet Volume 10.7 FL (9.6-12.0); Monocytes % 5.3 % (1.7-12.7); NRBC # 0.02 10*3/uL; Neutrophils % 75.5 % (38.7-73.9); Platelet Count 225 T/CUMM (130-400); Red Cell Distribution Width 18.1 % (9.3-17.3); White Blood Count 13.3 T/CUMM (4-12)
[2020-10-09 06:00] LABS: Calcium 9.2 MG/DL (8.5-10.1); Osmolality,Calculated 273.1 MOS/KG (273-304); Potassium 4.6 MMOL/L (3.5-5.1)
[2020-10-09] MEDS ORDERED: PROMETHAZINE INJ 12.5 MG in SODIUM CHLORIDE 0.9% 50 ML IV ONE (06:01)
[2020-10-09 06:14] LABS: Hypochromasia 1+; Microcytosis 1+; Platelet Estimate Adequate
[2020-10-09] MEDS ORDERED: PROMETHAZINE 25 MG/1 ML VIAL IV ONE (06:30)
[2020-10-09 08:52] VITALS: BP 108/50
[2020-10-09 09:16] LABS: Troponin I 0.419 NG/ML (0.00-0.045)
[2020-10-09] MEDS: lisinopriL 2.5 MG TABLET PO SCH (09:47)
[2020-10-09] MEDS: SPIRONOLACTONE 25 MG TABLET PO SCH (09:47)
[2020-10-09] MEDS: ESCITALOPRAM 10 MG TABLET PO SCH (09:47)
[2020-10-09] MEDS: metFORMIN 500 MG TABLET PO SCH (09:47)
[2020-10-09] MEDS: FOLIC ACID 1 MG TABLET PO SCH (09:48)
[2020-10-09] MEDS: APIXABAN 5 MG TABLET PO SCH (09:48)
[2020-10-09] MEDS: FERROUS SULFATE 325 MG TABLET PO SCH (09:48)
[2020-10-09] MEDS: AMIODARONE 200 MG TABLET PO SCH ×2 (09:49→10:38)
[2020-10-09] MEDS: PANTOPRAZOLE 40 MG TABLET PO SCH (09:49)
[2020-10-09] MEDS: DOCUSATE SODIUM 100 MG CAPSULE PO SCH (09:51)
[2020-10-09] MEDS: ASPIRIN EC 81 MG TABLET PO SCH (09:51)
[2020-10-09] MEDS: DILTIAZEM INJ 100 MG in SODIUM CHLORIDE 0.9% 100 ML IV SCH (09:57)
[2020-10-09] MEDS: CHLORHEXIDINE 0.12% ORAL RINSE 60 ML BOTTLE SWISH/SPIT SCH (10:37)
[2020-10-09] MEDS ORDERED: propofoL 200 MG/20 ML VIAL IV ONE (10:49)
[2020-10-09] MEDS ORDERED: LIDOCAINE 1% 20 ML VIAL ONE (11:03)
[2020-10-09] MEDS ORDERED: EPINEPHrine 1 MG/ML VIAL ONE ×2 (11:03→11:40)
[2020-10-09] MEDS ORDERED: PHENYLEPHRINE 50 MG/5 ML VIAL ONE (11:13)
== END 2020-10-09 11:35 | disposition expired | DRG 236 ==
LOC: N.4E 09:25 → N.CVR 10-01 12:00 → N.ICU 10-02 13:53 → N.TELES 10-07 13:44